=== PATIENT | male | born 1970 | race African-American/Black ===

== ENCOUNTER 2018-07-18 17:03 | Inpatient (IN) | payer MEDICAID, OTHER ==
[~2018-07-18] VITALS: Ht 172.7 cm; Wt 138.8 kg
[2018-07-18] MEDS ORDERED: ENALAPRIL 2.5MG/2ML VIAL 2ML IV ONE (18:15)
[2018-07-18 18:25] LABS: HEMATOCRIT. 40.3 % (42.0-52.0); HEMOGLOBIN. 13.2 g/dL (14.0-18.0); LYMPHOCYTES % 26.7 % (20.0-50.0); MEAN CORPUSCULAR HEMOGLOBIN 27.1 pg (28.0-32.0); MEAN PLATELET VOLUME 7.1 fl (7.4-10.4); MONOCYTES % 6.7 % (2.0-8.0); NEUTROPHILS % 64.6 % (40.0-76.0); PLATELET 258 x1000/uL (130-400); RED BLOOD CELL COUNT 4.86 mill/uL (4.7-6.1); RED CELL DISTRIBUTION WIDTH 13.6 % (11.6-14.6)
[2018-07-18 18:29] LABS: CHLORIDE 107 mEq/L (98-107)
[2018-07-18] MEDS ORDERED: COCAINE 4% TOPICAL SOLN 4ML TOP NR (18:30)
[2018-07-18 18:31] LABS: PARTIAL THROMBOPLASTIN TIME 30.2 sec (23.4-31.0); PROTHROMBIN TIME 10.6 sec (9.6-11.0)
[2018-07-18] MEDS ORDERED: LABETALOL 5MG/ML SYR 20 MG/4 ML SYRINGE IV ONE (19:00)
[2018-07-18] MEDS ORDERED: HYDROCODONE/ACETAMINOPHEN 5/325MG TABLET PO PRN (20:00)
[2018-07-18] MEDS ORDERED: LORAZEPAM 0.5MG TABLET PO PRN (20:00)
[2018-07-18] MEDS ORDERED: ACETAMINOPHEN 325MG TABLET PO PRN (20:00)
[2018-07-18] MEDS ORDERED: ONDANSETRON HCL 4MG/2ML INJ IV PRN (20:00)
[2018-07-18] MEDS ORDERED: IPRATROPIUM/ALBUTEROL 0.5-3(2.5)MG/3ML NEB INH PRN (20:00)
[2018-07-18] MEDS ORDERED: DOCUSATE SODIUM 100MG CAPSULE PO PRN (20:00)
[2018-07-18] MEDS ORDERED: LABETALOL 5MG/ML SYR 20 MG/4 ML SYRINGE IV PRN (20:00)
[2018-07-18 20:17] LABS: PHOSPHORUS 1.9 mg/dL (2.5-4.9)
[2018-07-18] MEDS ORDERED: OXYMETAZOLINE HCL NASAL SPRAY 15ML BOTHNSTRLS SCH (21:00)
[2018-07-18 21:21] LABS: *AMPHETAMINES SCREEN URINE NEGATIVE (NEGATIVE); *BARBITURATES SCREEN URINE NEGATIVE (NEGATIVE); *BENZODIAZEPINES SCREEN URINE NEGATIVE (NEGATIVE); *COCAINE SCREEN URINE NEGATIVE (NEGATIVE); CANNABINOID URINE SCREEN NEGATIVE (NEGATIVE); METHADONE URINE SCREEN NEGATIVE (NEGATIVE); OPIATES URINE SCREEN NEGATIVE (NEGATIVE); PHENCYCLIDINE URINE SCREEN NEGATIVE (NEGATIVE)
[2018-07-18 23:00] VITALS: BP 116/66
[2018-07-19] VITALS (10 sets, daily range): BP systolic 132–169; BP diastolic 66–104
[2018-07-19] MEDS ORDERED: LISI-186 MT (12:33)
[2018-07-19] MEDS ORDERED: NICO-682 TP (12:33)
== END 2018-07-19 15:36 | disposition home or self-care (01) | DRG 199 ==
LOC: ER 17:03 → 3WST 19:07 → EDBEDREQ 19:09 → EDBEDREQSVC 20:36 → ENRESERV 20:45
PROVIDERS: ADMIT Internal Medicine; ATTEND Internal Medicine
DX: I16.1 Hypertensive emergency (principal); E83.39 Other disorders of phosphorus metabolism; R04.0 Epistaxis; D64.9 Anemia, unspecified; E78.5 Hyperlipidemia, unspecified; F17.200 Nicotine dependence, unspecified, uncomplicated; H11.31 Conjunctival hemorrhage, right eye; I10 Essential (primary) hypertension; Z79.82 Long term (current) use of aspirin; Z91.19 Patient's noncompliance with other medical treatment and regimen
CPT/HCPCS: 36415; 80048; 80061; 80305; 83036; 83735; 84100; 84443; 86850; 86900; 93005; 99291; J3490

== ENCOUNTER 2022-05-31 12:25 | Emergency (ER) | payer MEDICAID, OTHER ==
[~2022-05-31] VITALS: Ht 180.3 cm; Wt 137.0 kg
[~2022-05-31 12:25] MED LIST: LISI-186 MT; NICO-789 TP
[2022-05-31] MEDS ORDERED: SUCCINYLCHOLINE CHLORIDE 200MG/10ML IV ONE (13:00)
[2022-05-31] MEDS ORDERED: LABETALOL HCL VIAL 20 MG/4 ML VIAL IV ONE (13:00)
[2022-05-31] MEDS ORDERED: FENTANYL 2500MCG/250ML PMX 250 ML IV ONE (13:00)
[2022-05-31] MEDS ORDERED: ETOMIDATE 2MG/ML 10ML VIAL IV ONE (13:00)
[2022-05-31] MEDS ORDERED: NICARDIPINE 40MG/200ML PREMIX 200 ML IV PRN (13:00)
[2022-05-31] MEDS ORDERED: PROPOFOL 10MG/ML 100ML 100 ML IV ONE (13:00)
[2022-05-31] MEDS ORDERED: LABETALOL 5MG/ML SYR 20 MG/4 ML SYRINGE IV NR (13:15)
[2022-05-31] MEDS ORDERED: MANNITOL 20% (20GM/100ML) BAG 500ML PREMIX IV ONE (14:00)
[2022-05-31] MEDS ORDERED: DEXAMETHASONE 10 MG/ML VIAL IV ONE (14:00)
[2022-05-31] MEDS ORDERED: IOHEXOL-350 100 ML BOTTLE ONE (14:08)
[2022-05-31 15:13] LABS: BG CARBOXYHEMOGLOBIN 1.4 % (0.5-1.5); BG DEOXYHEMOGLOBIN 3.6 % (0.0-5.0); BG FRACTION INSPIRED OXYGEN 100; BG HCO3 ACT 26.6 mmol/L (22.0-26.0); BG METHEMOGLOBIN 0.6 % (0.0-1.5); BG OXYGEN SATURATION 96.3 % (92.0-98.5); BG OXYHEMOGLOBIN 94.4 % (94.0-97.0); BG PCO2 56.4 mmHg (35.0-45.0); BG PH 7.292 (7.350-7.450); BG PO2 92.8 mmHg (75.0-100.0); BG SAMPLE SITE RIGHT RADIAL; BG TOTAL HEMOGLOBIN 14.7 g/dL (12.0-18.0); BG VENT MODE VENT - AC
[2022-05-31 15:29] LABS: BASOPHILS % 0.5 % (0.0-2.0); EOSINOPHILS % 0.2 % (0.0-5.0); HEMATOCRIT. 47.7 % (42.0-52.0); HEMOGLOBIN. 15.2 g/dL (14.0-18.0); LYMPHOCYTES % 26.2 % (20.0-50.0); MEAN CORPUSCULAR VOLUME 84.6 fL (80.0-94.0); MEAN PLATELET VOLUME 7.9 fl (7.4-10.4); MONOCYTES % 4.5 % (2.0-8.0); NEUTROPHILS % 68.6 % (40.0-76.0); PLATELET 294 x1000/uL (130-400); RED BLOOD CELL COUNT 5.63 mill/uL (4.7-6.1); RED CELL DISTRIBUTION WIDTH 14.2 % (11.6-14.6)
[2022-05-31] MEDS ORDERED: FENTANYL CITRATE 2,500 MCG in SODIUM CHLORIDE 0.9% 200 ML IV PRN (15:30)
[2022-05-31] MEDS ORDERED: MANNITOL 20% 250 ML IV NR (15:30)
[2022-05-31 15:43] LABS: CHLORIDE 101 mEq/L (98-107)
[2022-05-31 15:55] LABS: ETHANOL BLOOD < 10 mg/dL
[2022-05-31 16:09] LABS: PROTHROMBIN TIME 10.4 sec (9.6-11.0)
[2022-05-31] MEDS ORDERED: DEXAMETHASONE 10 MG/ML VIAL IV NR (16:30)
[2022-05-31 17:18] VITALS: BP 106/60
[2022-05-31 17:25] LABS: CLARITY URINE CLEAR (CLEAR); COLOR URINE YELLOW (YELLOW); KETONES URINE TRACE (NEGATIVE); LEUKOCYTE ESTERASE URINE NEGATIVE (NEGATIVE); NITRITE URINE NEGATIVE (NEGATIVE); OCCULT BLOOD URINE 2+ (NEGATIVE); PROTEIN URINE 3+ (NEGATIVE); SPECIFIC GRAVITY URINE 1.014 (1.005-1.030); UROBILINOGEN URINE 0.2 E.U./dL (0.2-1.0)
[2022-05-31 17:46] LABS: *AMPHETAMINES SCREEN URINE NEGATIVE (NEGATIVE); *BARBITURATES SCREEN URINE NEGATIVE (NEGATIVE); *BENZODIAZEPINES SCREEN URINE NEGATIVE (NEGATIVE); *COCAINE SCREEN URINE NEGATIVE (NEGATIVE); CANNABINOID URINE SCREEN NEGATIVE (NEGATIVE); METHADONE URINE SCREEN NEGATIVE (NEGATIVE); OPIATES URINE SCREEN NEGATIVE (NEGATIVE); PHENCYCLIDINE URINE SCREEN NEGATIVE (NEGATIVE)
== END 2022-05-31 17:16 | disposition short-term general hospital (02) ==
LOC: ER 12:25 → CANBEDREQ 15:39 → ER 17:16
DX: I62.9 Nontraumatic intracranial hemorrhage, unspecified (principal); J96.01 Acute respiratory failure with hypoxia; I16.1 Hypertensive emergency; G91.1 Obstructive hydrocephalus; R47.02 Dysphasia; R26.9 Unspecified abnormalities of gait and mobility; I44.7 Left bundle-branch block, unspecified; E66.01 Morbid (severe) obesity due to excess calories; Z68.41 Body mass index [BMI] 40.0-44.9, adult
CPT/HCPCS: 31500; 36415; 36600; 43752; 70450; 70496; 70498; 71045; 80053; 80305; 80320; 81003; 82375; 82805; 82962; 83605; 84484; 85025; 85610; 86850; 86900; 86901; 93005; 96365; 96375; 99291; J1100; J2704; J3010; J3490; Q9967; Z7610; 94002; A4315; G0480